=== PATIENT | male | born 1990 | race Caucasian/White ===

== ENCOUNTER → 2021-06-24 11:45 | Outpatient (BNVA) | payer OTHER, SELFPAY | PROVIDERS: Family Provider Emergency Medicine Emergency Medical Services; Visit Provider Surgery | DX: Z11.52 Encounter for screening for COVID-19 (principal); Z20.822 Contact with and (suspected) exposure to COVID-19 | CPT/HCPCS: 87635 ==

== ENCOUNTER 2021-06-30 10:27 | Day surgery (SDC) | payer OTHER, SELFPAY ==
[2021-06-28 13:08] VITALS: BMI 32.3
--- NOTE | 2021-06-30 10:36 | ANES.PREANE2 ---
Pre-Anesthetic Assessment Pre-Anesthetic Assessment: Height/Weight: Height 1.85 m Weight 111.13 kg Preop Diagnosis: GERD Proposed Procedure: Operation Date: 06/30/21 09:30 Proposed Procedures p EGD 42551 k21.9(Not Applicable) - Landon Martin MD Familial anesthetic complications: none Was Beta Krysta taken within 24 hours: N/A Was Clonidine taken within 24 hours: N/A Last intake: > 8 hr s Social: Social History: No alcohol and No tobacco Exam: Pre-Anes Outpt Exam: alert, oriented x 3, clear to auscultation bilaterally and regular rate & rhythm Airway: Cervical ROM: WNL MP: 4 Dentition: Full GI: GI: GERD Musc/skel: Musc/skel: Lower Back Pain Anesthetic Plan: ASA status: 1 Anesthesia: MAC Risk of > 500 ml blood loss (7ml/kg in children): No PFSH Anesthesia PFSH: Medical History (Updated 06/06/21 @ 08:55 by Landon Martin MD) GERD (gastroesophageal reflux disease) Hiatal hernia Surgical History (Updated 06/06/21 @ 08:47 by Landon Martin MD) History of esophagogastroduodenoscopy (EGD) History of laparoscopic cholecystectomy Family History (Updated 06/06/21 @ 08:42 by Lauren Vega RN) Denies family history of Anesthesia complication Bleeding disorder Social History Smoking and tobacco status: never smoked Data Anesthesia Cardiac Studies: No Data to Display
[2021-06-30 11:02] VITALS: BP 134/77; PULSE 66; RESP 18; TEMP 37; O2SAT 97
[2021-06-30] MEDS: sodium chloride 0.9% 1,000 ML 30 ML IV (11:13)
--- NOTE | 2021-06-30 11:46 | W.PM.OPSUD ---
Surgery/Procedure H&P Update DATE OF PROCEDURE: June 30, 2021 DATE H&P PERFORMED: 06/06/21 H&P UPDATE INFORMATION: I have reviewed H&P completed within last 30 days, I have examined patient prior to procedure and No changes to prior documentation PREOP DIAGNOSIS: upper gi symptoms PLANNED PROCEDURE: Operation Date: 06/30/21 09:30 Proposed Procedures p EGD 24413 k21.9(Not Applicable) - Landon Martin MD
[2021-06-30 11:57] VITALS: BP 113/65; PULSE 70; RESP 16; TEMP 36.6; O2SAT 93
[2021-06-30 12:10] VITALS: BP 117/65; PULSE 64; RESP 18; O2SAT 97
--- NOTE | 2021-06-30 15:00 | ANE.PACU2 ---
Inpatient post-anesthesia follow up: Airway intact: Yes Vital signs: Temperature 97.8 F Pulse Rate 64 Respiratory Rate 18 Blood Pressure 117/65 Pulse Oximetry 97 Oxygen Delivery Me thod Room Air Oxygen Flow Rate Fraction of Inspir ed Oxygen Hydration adequate: Yes Nausea and vomiting: No Pain level: 1 Mental status: Baseline
== END 2021-06-30 12:25 | disposition home or self-care (01) ==
PROVIDERS: PCP Emergency Medicine Emergency Medical Services; Visit Provider Surgery
PROC: 0DJ08ZZ Inspection of Upper Intestinal Tract, Via Natural or Artificial Opening Endoscopic (ICD-10-PCS; CPT 43235; principal; 2021-06-30 09:30)
DX: K21.9 Gastro-esophageal reflux disease without esophagitis (principal); K29.70 Gastritis, unspecified, without bleeding
CPT/HCPCS: 43239; 88305; 96360; J2704; J7030

== ENCOUNTER 2022-04-28 07:50 | Outpatient (CLI) | payer OTHER, SELFPAY ==
--- NOTE | 2022-04-28 08:00 | MR_ITS ---
WS: [id number] MRI CERVICAL SPINE NONCONTRAST TECHNIQUE: Sagittal T1, T2 and STIR imaging. Axial T2, gradient, and fiesta imaging. CLINICAL INFORMATION: CERVICAL PAIN/CERVICAL RADICULAR PAIN COMPARISON: FINDINGS: Straightening of the normal cervical lordosis. Mild disc bulging C4-C5 and C6-C7. Previously describe d tiny syrinx at the C7 level is unchanged in appearance compared to 2019. Cord signal is otherwise n ormal. C2-C3: Normal. C3-C4: No significant disc bulging. Spinal canal is patent. Mild RIGHT foraminal narrowing. LEFT fora men is patent. C4-C5: Mild facet arthropathy. Mild RIGHT foraminal narrowing. C5-C6: No significant disc bulging. Sp inal canal and foramen are patent. C6-C7: Mild disc bulging. Slight effacement of ventral thecal sac. Mild bilateral foraminal narrowing . Spinal canal is patent. Mild facet arthropathy. C7-T1: No significant disc bulging. Spinal canal and foramen are patent. Mild facet arthropathy. Visualized brain stem structures: Normal. Prevertebral soft tissues: Normal. MR/MR cervical spin wo con* [id number] IMPRESSION: 1. Overall no significant changes compared to 2019. 2. Tiny syrinx at the C7 level is unchanged. Cord signal is otherwise normal. 3. Mild disc bulging C6-C7 with osteophytic ridging. Mild bilateral foraminal narrowing. 4. Otherwise mild foraminal narrowing RIGHT C3-C4 and RIGHT C4-C5. 5. Mild facet arthropathy more prominent at C6-C7 and C7-T1.
--- NOTE | 2022-04-28 08:45 | MR_ITS ---
WS: [id number] MRI THORACIC SPINE WITHOUT CONTRAST TECHNIQUE: Sagittal T1, T2 and STIR imaging. Axial T2 imaging. Noncontrast imaging obtained. CLINICAL INFORMATION: THORACIC PAIN/THORACIC RADICULOPATHY COMPARISON: 2019 FINDINGS: Mild thoracic kyphosis. No acute compression. No high-grade central canal stenosis. Schmorl's nodes i n the mid thoracic spine. Cord signal is normal. Normal caliber thoracic aorta. Adrenal glands are no rmal. Small splenule. Normal paravertebral soft tissues. A few small disc protrusions in the mid and lower thoracic spine. T5-6: Tiny central disc protrusion. Slight contact of the thoracic cord. Spinal canal and foramen are patent. T6-7: Small left pericentral protrusion slightly contacts the thoracic cord. Spinal canal and foramen are patent. T7-8: Endplate Schmorl's node. Small left foraminal protrusion. Spinal canal and foramen are patent. T8-T9: Tiny central protrusion. Spinal canal and foramen are patent. Mild facet arthropathy. T9-T10: Small right pericentral protrusion contacts the right ventral thoracic cord. No significant c entral canal stenosis. Foramen are patent. Mild facet arthropathy. T10-11: Mild disc bulging. Mild facet arthropathy. Spinal canal and foramen are patent. MR/MR thoracic spin wo con* [id number] IMPRESSION: 1. Mild thoracic kyphosis. No high-grade central canal narrowing. Cord signal is normal. 2. No acute compression fractures. A few Schmorl's nodes in the mid thoracic s pine similar to previous. 3. Tiny shallow RIGHT pericentral protrusion T9-T10 with slight contact of the RIGHT ventral thoracic cord. This is unchanged compared to previous. 4. Tiny central protrusion T5-T6 with slight contact of the thoracic cord. 5. Small LEFT subarticular protrusion T6-T7 with slight contact of the lateral thoracic cord. This is unchanged from previous. 6. Mild facet arthropathy in the lower thoracic spine. 7. Overall no significant changes compared to
--- NOTE | 2022-04-28 09:30 | MR_ITS ---
WS: [email or web address] MRI LUMBAR SPINE NONCONTRAST TECHNIQUE: Sagittal T1, T2 and STIR imaging. Axial T1 and T2 imaging. CLINICAL INFORMATION: LUMBAR PAIN COMPARISON: No prior lumbar imaging. FINDINGS: Mild lumbar curve. No acute compression. No high-grade central canal stenosis. L1-L2: Normal. L2-L3: Normal. L3-L4: Mild annular bulging. Mild facet arthropathy. Spinal canal and foramen are patent. L4-L5: Mild annular bulging. Slight effacement of ventral thecal sac. Spinal canal and foramen are pa tent. Mild facet arthropathy. L5-S1: Mild annular bulging with osteophytic ridging. Mild facet arthropathy. Spinal canal and forame n are patent. Visualized pelvic bony structures: Normal. Paravertebral soft tissues: Normal. MR/MR lumbar spine wo con* [id number] IMPRESSION: 1. Mild lumbar curve. No acute compression. No high-grade central canal stenos is. 2. Mild annular bulging L3-L4 L4-L5 and L5-S1. No significant spinal canal or foraminal narrowing. 3. Mild facet arthropathy L4-L5 and L5-S1.
== END 2022-04-28 07:51 | disposition home or self-care (01) ==
LOC: RAD 07:51
PROVIDERS: PCP Emergency Medicine Emergency Medical Services; Visit Provider Anesthesiology Pain Medicine
DX: M54.50 Low back pain, unspecified (principal); M54.6 Pain in thoracic spine; M54.2 Cervicalgia; M54.15 Radiculopathy, thoracolumbar region; M54.12 Radiculopathy, cervical region
CPT/HCPCS: 72141; 72146; 72148

== ENCOUNTER 2023-12-17 20:00 | Outpatient (CLI) | payer OTHER, SELFPAY | END 2023-12-17 20:01 | disposition home or self-care (01) | LOC: SLEEP 12-18 05:59 | PROVIDERS: PCP Emergency Medicine Emergency Medical Services; Visit Provider Emergency Medicine Emergency Medical Services | DX: G47.33 Obstructive sleep apnea (adult) (pediatric) (principal); R71.8 Other abnormality of red blood cells; R06.83 Snoring | CPT/HCPCS: 95810 ==

== ENCOUNTER 2024-02-25 20:00 | Outpatient (CLI) | payer OTHER, SELFPAY | END 2024-02-25 20:01 | disposition home or self-care (01) | LOC: SLEEP 02-26 06:18 | PROVIDERS: PCP Emergency Medicine Emergency Medical Services; Visit Provider Emergency Medicine Emergency Medical Services | DX: G47.33 Obstructive sleep apnea (adult) (pediatric) (principal); G47.8 Other sleep disorders | CPT/HCPCS: 95811 ==

== ENCOUNTER 2024-10-01 12:13 | Outpatient (CLI) | payer OTHER, SELFPAY ==
--- NOTE | 2024-10-01 12:15 | MR_ITS ---
WS: [email or web address] MRI RIGHT KNEE HISTORY: RIGHT KNEE PAIN COMPARISON: 10/30/2019 Anterior cruciate ligament: Mild heterogeneous signal in the distal ACL. No tear identified. Posterior cruciate ligament: Intact. Medial collateral ligament: Intact. Posterior lateral corner structures: Intact. Medial menisci: Intact. Normal signal, size and shape. Lateral meniscus: Intact. Normal signal, size and shape. Extensor mechanism: Distal quadriceps tendon and patellar tendons are intact. Fluid and soft tissue: No joint effusion. No Eli's cyst. Osseous and articular structures: Patellofemoral compartment: Normal. Medial compartment: Normal. Lateral compartment: Normal. MR/MR knee RT wo con* [id number] IMPRESSION: Unremarkable RIGHT knee MRI. No meniscal or ligament tears. No marrow edema.
--- NOTE | 2024-10-01 12:18 | MR_ITS ---
WS: [id number] MRI RIGHT SHOULDER HISTORY: RIGHT SHOULDER PAIN COMPARISON: None available. TECHNIQUE: Multiplanar sequences of the shoulder joint are submitted. Minimal AC joint arthritis. No subacute acromial or subdeltoid bursal distention. No os acromion. Nor mal position of the biceps tendon. Normal position of the humeral head. No rotator cuff muscle atrophy or edema. Mild tendinopathy in th e distal subscapularis tendon. There is thickening and increased signal. No labral tears are identifi ed. No muscle atrophy or edema. MR/MR shoulder RT wo con* [id number] IMPRESSION: 1. Moderate tendinopathy distal subscapularis. 2. No rotator cuff tendon tears. 3. Mild AC joint arthritis. 4. No joint effusion. 5. No labral tear.
== END 2024-10-01 12:14 | disposition home or self-care (01) ==
LOC: RAD 12:13
PROVIDERS: PCP Nurse Practitioner Family; Visit Provider Nurse Practitioner Family
DX: M75.91 Shoulder lesion, unspecified, right shoulder (principal); M25.561 Pain in right knee
CPT/HCPCS: 73221; 73721

== ENCOUNTER → 2024-12-17 13:44 | Outpatient (BNVA) | payer OTHER, SELFPAY | PROVIDERS: PCP Nurse Practitioner Family; Visit Provider Specialist | DX: M25.561 Pain in right knee (principal); S89.81XA Other specified injuries of right lower leg, initial encounter; M25.562 Pain in left knee; X58.XXXA Exposure to other specified factors, initial encounter | CPT/HCPCS: 73560; 73565; 99204 ==

== ENCOUNTER 2025-05-07 12:23 | Outpatient (RCR) | payer OTHER, SELFPAY | END 2025-05-25 23:59 | disposition home or self-care (01) | LOC: SPT 12:23 | PROVIDERS: Visit Provider Nurse Practitioner Family | DX: M54.2 Cervicalgia (principal) | CPT/HCPCS: 97110; 97140; 97161 ==

== ENCOUNTER 2025-05-26 05:00 | Outpatient (RCR) | payer OTHER, SELFPAY | END 2025-06-25 23:59 | disposition home or self-care (01) | LOC: SPT 05:00 | PROVIDERS: Visit Provider Nurse Practitioner Family | DX: M54.2 Cervicalgia (principal) | CPT/HCPCS: 97110; 97140 ==

== ENCOUNTER 2025-06-26 05:00 | Outpatient (RCR) | payer OTHER, SELFPAY | END 2025-07-10 07:50 | disposition home or self-care (01) | LOC: SPT 05:00 | PROVIDERS: Visit Provider Nurse Practitioner Family | DX: M54.2 Cervicalgia (principal); M54.50 Low back pain, unspecified | CPT/HCPCS: 97110; 97140 ==

== ENCOUNTER 2025-11-18 07:56 | Outpatient (CLI) | payer OTHER, SELFPAY ==
--- NOTE | 2025-11-18 08:01 | US_ITS ---
WS: [email or web address] RIGHT UPPER QUADRANT ULTRASOUND HISTORY: ELEVATED LFTS COMPARISON: None available. Liver: 16.6 cm in length. Normal size liver and echogenicity. No bile duct dilatation or mass. Portal Vein: Normal hepatopetal flow with monophasic waveform. Gallbladder: Prior cholecystectomy. CBD: 0.4 cm Pancreas: Poorly visualized. Body appears normal. Right kidney: 11.5 cm in length. Normal size and echogenicity. No hydronephrosis or mass. Aorta and IVC: Unremarkable abdominal aorta and IVC. No ascites. US/US abdomen limited [id number] IMPRESSION: 1. Prior cholecystectomy. 2. Otherwise normal RIGHT upper quadrant ultrasound.
== END 2025-11-18 07:57 | disposition home or self-care (01) ==
LOC: RAD 07:57
PROVIDERS: PCP Family Medicine Geriatric Medicine; Visit Provider Family Medicine Geriatric Medicine
DX: R74.01 Elevation of levels of liver transaminase levels (principal); Z90.49 Acquired absence of other specified parts of digestive tract
CPT/HCPCS: 76705